=== PATIENT | female | born 1950 | race Caucasian/White ===

== ENCOUNTER 2016-12-24 15:59 | Inpatient (IN) | payer BC, MEDICARE ==
[~2016-12-24] VITALS: Ht 162.6 cm; Wt 65.0 kg
[~2016-12-24 15:59] MED LIST: ACYCLOVIR400 MG PO; ALENDRONATE35 MG PO; ALLEGRA-D 2424 HOUR PO; ALLERGY RELIEF180 MG PO; ALPRAZOLAM1 MG PO; AMBIEN10 MG PO; AMITRIPTYLIN100 MG PO; ATENOLOL50 MG PO; AZITHROMYCIN250 MG PO; BACTRIM DS1 TAB PO; BENTYL10 MG PO; BIOTIN1000 MCG PO; BIOTIN5000 MCG PO; BLOOD GLUCOSE TEST S XX; CEPHALEXIN500 MG PO; CIPRO XR500 MG PO; CITALOPRAM10 MG PO; CYANOCOBALAM1000 MCG IJ; CYCLOBENZAPR10 MG PO; DEPO-MEDROL40 MG/ML IM; DICYCLOMINE10 MG PO; DIFLUCAN150 MG PO; DURAGESIC50 MCG/H1; EFFEXOR XR150 MG OR; EFFEXOR XR75 MG PO; ESTRACE2 MG OR; FERROUS FUMARA325 MG; FEXOFENADINE H180 MG PO; FISH OIL ULT1000 MG PO; FISH OIL1000 MG PO; FISH OIL1200 M1 PO; FLEXERIL PO; FLONASE NASAL50 MCG; GLIPIZIDE10 MG PO; HYDROCO/APAP1 T13 PO; IMDUR30 MG PO; IMODIUM A-D2 MG PO; LAMICTAL ODT100 MG PO; LAMICTAL100 M1 PO; LANSOPRAZOLE15 MG PO; LANTUS100 MG/ML SC; LASIX40 MG PO; LEVEMIR FL100 UNIT/M SC; LEVEMIR SC; LEXAPRO20 MG PO; LIBRAX1 CAP OR; LIBRAX1 CAP PO; LIPOFEN150 MG PO; LIVALO4 MG PO; LOMOTIL2.5 MG PO; LOPID600 MG PO; LYRICA50 MG OR; MEDDOSEPAK PO; MELATONIN1 M1 PO; MELATONIN10 MG; METFORMIN1000 MG PO; METFORMIN500 MG PO; METRONIDAZOL500 MG PO; METRONIDAZOLE500 MG PO; MICRO-K10 MEQ PO; MONITOR XX; MULTIVITA2 PO; NEURONTIN300 MG PO; NITROFURANTO100 MG PO; NORCO1 TAB PO; NYSTATIN100000 M1 PO; OMEPRAZOLE20 M1 PO; OMEPRAZOLE20 MG PO; OXYCONTIN40 MG PO; PAROXETINE25 MG PO; PAXIL30 MG PO; PERCOCET 10/31 COMBO PO; PERCOCET1 TA2 OR; PERCOCET1 TA4 PO; PLAVIX75 MG OR; PREDNISONE10 MG PO; PREDNISONE20 MG PO; PREMARIN1.25 MG OR; PREVACID30 M1 PO; PREVACID30 M3 PO; SYNTHROID25 MCG PO; VALIUM2 MG PO; VITAMIN B 12100 MCG PO; XANAX0.5 MG OR; ZANTAC 150 MAX150 MG PO; ZPAK PO
[2016-12-24 16:49] LABS: URINE BILIRUBIN - DIPSTICK NEGATIVE (NEGATIVE); URINE BLOOD DIPSTICK TRACE-INTACT (NEGATIVE); URINE CLARITY CLEAR; URINE COLOR YELLOW; URINE GLUCOSE - DIPSTICK >=1000 mg/dL (NEGATIVE); URINE KETONE NEGATIVE (NEGATIVE); URINE LEUK ESTERASE NEGATIVE (NEGATIVE); URINE NITRITE - DIPSTICK NEGATIVE (Negative); URINE PH 5.5 (4.5-8.0); URINE PROTEIN - DIPSTICK 100 mg/dL (NEG-TRACE); URINE UROBILINOGEN - DIPSTICK 0.2 E.U./dL (0.2)
[2016-12-24 16:58] LABS: URINE RBC 0-2 RBC/hpf (0-5); URINE SQUAMOUS EPITHELIAL CELL FEW EPI/hpf (0-FEW); URINE WBC 0-2 WBC/hpf (0-5)
[2016-12-24 17:52] LABS: HEMATOCRIT 44.9 % (37.0-47.0); HEMOGLOBIN 15.3 g/dl (12.0-16.0); IMMATURE GRANULOCYTES 1.1 % (0.0-1.0); MEAN CELL VOLUME 91.1 fL CALC (80.0-100.0); MEAN CORPUSCULAR HGB CONC 34.1 g/L CALC (32.0-36.0); NEUT# 5.68 thou/uL (2.00-7.15); RED BLOOD COUNT 4.93 mill/uL (4.20-5.60)
[2016-12-24 18:11] LABS: ALBUMIN 4.8 g/dL (3.2-5.0); ALKALINE PHOSPHATASE 138 u/l (38-126); AMYLASE 119 u/l (30-110); ANION GAP 25 (6-22 (CALC)); BILIRUBIN, TOTAL 0.5 mg/dL (0.0-1.4); BUN 21 mg/dL (8-23); BUN/CREATININE RATIO 21 (12-20 (CALC)); CALCIUM 10.1 mg/dL (8.4-10.2); CARBON DIOXIDE 18 mmol/l (22-30); CHLORIDE 96 mmol/l (95-108); GFR 55 ML/MIN (>=60 (CALC)); GFR FOR AFR.AMER. > 60 ML/MIN (>=60 (CALC)); GLUCOSE 420 mg/dL (82-115); LIPASE 433 u/l (23-300); POTASSIUM 4.1 mmol/l (3.5-5.1); SGOT/AST 21 u/l (9-36); SGPT/ALT 25 u/l (11-66); SODIUM 135 mmol/l (137-146); TOTAL PROTEIN 9.1 g/dL (6.3-8.2)
[2016-12-24 20:42] LABS: C. DIFFICILE TOXIN A&B NEGATIVE (NEGATIVE)
[2016-12-24 23:42] VITALS: BP 136/72
[2016-12-25 03:10] VITALS: BP 147/73
[2016-12-25 06:12] LABS: HEMATOCRIT 36.1 % (37.0-47.0); HEMOGLOBIN 11.8 g/dl (12.0-16.0); IMMATURE GRANULOCYTES 0.8 % (0.0-1.0); MEAN CELL VOLUME 93.5 fL CALC (80.0-100.0); MEAN CORPUSCULAR HGB 30.6 pG CALC (26.0-32.0); MEAN CORPUSCULAR HGB CONC 32.7 g/L CALC (32.0-36.0); NEUT# 3.47 thou/uL (2.00-7.15); RED BLOOD COUNT 3.86 mill/uL (4.20-5.60); RED CELL DISTRI WIDTH 13.1 % (11.5-15.5)
[2016-12-25 06:33] LABS: BUN 16 mg/dL (8-23); BUN/CREATININE RATIO 17 (12-20 (CALC)); CALCIUM 8.6 mg/dL (8.4-10.2); CARBON DIOXIDE 21 mmol/l (22-30); GFR 55 ML/MIN (>=60 (CALC)); GFR FOR AFR.AMER. > 60 ML/MIN (>=60 (CALC)); GLUCOSE 204 mg/dL (82-115); HDL CHOLESTEROL 35 mg/dL (>=40); LIPASE 161 u/l (23-300); POTASSIUM 3.9 mmol/l (3.5-5.1); SODIUM 141 mmol/l (137-146)
[2016-12-25 06:41] LABS: VLDL CHOLESTROL 189 mg/dl (1-41 (CALC))
[2016-12-25 06:44] LABS: ANION GAP 16 (6-22 (CALC)); CALCULATED LDLCHOLESTEROL 159 mg/dL (62-129 (CALC)); CHLORIDE 108 mmol/l (95-108); CHOLESTEROL HDL RATIO 10.9 (<4.4 (CALC)); TOTAL CHOLESTEROL 383 mg/dl (0-199); TOTAL TRIGLYCERIDES 946 mg/dl (30-149)
[2016-12-25 13:55] LABS: URINE BILIRUBIN - DIPSTICK NEGATIVE (NEGATIVE); URINE BLOOD DIPSTICK NEGATIVE (NEGATIVE); URINE CLARITY SLIGHT CLOUDY; URINE COLOR YELLOW; URINE GLUCOSE - DIPSTICK 500 mg/dL (NEGATIVE); URINE KETONE NEGATIVE (NEGATIVE); URINE LEUK ESTERASE NEGATIVE (NEGATIVE); URINE NITRITE - DIPSTICK NEGATIVE (Negative); URINE PROTEIN - DIPSTICK TRACE mg/dL (NEG-TRACE); URINE SPECIFIC GRAVITY >=1.030; URINE UROBILINOGEN - DIPSTICK 0.2 E.U./dL (0.2)
[2016-12-25 17:00] VITALS: BP 145/72
[2016-12-25 20:10] VITALS: BP 135/74
[2016-12-26 00:30] VITALS: BP 122/66
[2016-12-26 04:46] VITALS: BP 112/66
[2016-12-26 05:09] LABS: HEMATOCRIT 30.2 % (37.0-47.0); MEAN CELL VOLUME 93.8 fL CALC (80.0-100.0); MEAN CORPUSCULAR HGB 31.1 pG CALC (26.0-32.0); MEAN CORPUSCULAR HGB CONC 33.1 g/L CALC (32.0-36.0); NEUT# 3.66 thou/uL (2.00-7.15); RED BLOOD COUNT 3.22 mill/uL (4.20-5.60); RED CELL DISTRI WIDTH 12.8 % (11.5-15.5)
[2016-12-26 05:34] LABS: CALCIUM 8.5 mg/dL (8.4-10.2); CREATININE 1.1 mg/dL (0.5-1.0); POTASSIUM 3.9 mmol/l (3.5-5.1)
[2016-12-26 17:00] VITALS: BP 154/79
[2016-12-26 20:13] VITALS: BP 150/81
[2016-12-26 23:35] VITALS: BP 153/79
[2016-12-27 03:21] VITALS: BP 163/80
[2016-12-27 05:59] LABS: HEMATOCRIT 33.5 % (37.0-47.0); HEMOGLOBIN 11.2 g/dl (12.0-16.0); IMMATURE GRANULOCYTES 1.4 % (0.0-1.0); MEAN CORPUSCULAR HGB 30.4 pG CALC (26.0-32.0); MEAN CORPUSCULAR HGB CONC 33.4 g/L CALC (32.0-36.0); NEUT# 3.33 thou/uL (2.00-7.15); RED BLOOD COUNT 3.68 mill/uL (4.20-5.60); RED CELL DISTRI WIDTH 12.5 % (11.5-15.5)
[2016-12-27 06:14] LABS: ANION GAP 14 (6-22 (CALC)); BUN 14 mg/dL (8-23); BUN/CREATININE RATIO 17 (12-20 (CALC)); CALCIUM 9.3 mg/dL (8.4-10.2); CARBON DIOXIDE 22 mmol/l (22-30); CHLORIDE 108 mmol/l (95-108); CREATININE 0.8 mg/dL (0.5-1.0); GFR > 60 ML/MIN (>=60 (CALC)); GFR FOR AFR.AMER. > 60 ML/MIN (>=60 (CALC)); GLUCOSE 135 mg/dL (82-115); POTASSIUM 3.9 mmol/l (3.5-5.1); SODIUM 140 mmol/l (137-146)
[2016-12-27 07:31] VITALS: BP 122/62
[2016-12-27 09:24] VITALS: BP 122/62
[2016-12-27] MEDS ORDERED: NOVOLOG100 UNIT/M SC (12:38)
[2016-12-27] MEDS ORDERED: FIRST-VANCOM25 MG/ML PO (12:38)
[2016-12-27] MEDS ORDERED: LEVEMIR100 UNIT/M SC (12:38)
[2016-12-27] MEDS ORDERED: FLORASTOR250 M1 PO (12:38)
== END 2016-12-27 13:35 | disposition home or self-care (01) | DRG 392 ==
LOC: ENPENDDIS → ED 15:59 → ED-I 19:27 → ED 19:36 → MS2 19:37
PROVIDERS: Emergency Medicine; ADMIT Internal Medicine; ATTEND Internal Medicine
DX: R19.7 Diarrhea, unspecified (principal); E87.2 Acidosis; E11.65 Type 2 diabetes mellitus with hyperglycemia; E11.40 Type 2 diabetes mellitus with diabetic neuropathy, unspecified; I10 Essential (primary) hypertension; E78.5 Hyperlipidemia, unspecified; F41.9 Anxiety disorder, unspecified; F32.9 Major depressive disorder, single episode, unspecified; F17.220 Nicotine dependence, chewing tobacco, uncomplicated; G89.29 Other chronic pain; Z93.3 Colostomy status; Z86.19 Personal history of other infectious and parasitic diseases; Z79.84 Long term (current) use of oral hypoglycemic drugs
CPT/HCPCS: S0164

== ENCOUNTER 2017-07-03 14:04 | Observation (INO) | payer BC, MEDICARE ==
[~2017-07-03] VITALS: Ht 162.6 cm; Wt 70.7 kg
[~2017-07-03 14:04] MED LIST changes: +FIRST-VANCOM25 MG/ML PO; +FLORASTOR250 M1 PO; +LEVEMIR100 UNIT/M SC; +NOVOLOG100 UNIT/M SC
[2017-07-03] MEDS ORDERED: ATENOLOL50 MG PO (14:54)
[2017-07-03] MEDS ORDERED: MIRTAZAPINE ODT15 MG PO (14:55)
[2017-07-03] MEDS ORDERED: HYDROXYZ PAM25 MG PO (14:55)
[2017-07-03] MEDS ORDERED: SEROQUEL25 MG PO (14:57)
[2017-07-03] MEDS ORDERED: AMBIEN5 MG PO (14:57)
[2017-07-03] MEDS ORDERED: LASIX 40 MG TAB40 MG PO (14:58)
[2017-07-03] MEDS ORDERED: FLEXERIL5 MG PO (14:59)
[2017-07-03] MEDS ORDERED: RANITIDINE75 MG/5 ML PO ×2 (14:59→15:00)
[2017-07-03] MEDS ORDERED: OXYCOD/APAP1 TA4 PO (15:00)
[2017-07-03] MEDS ORDERED: OXYCONTIN10 MG PO (15:02)
[2017-07-03] MEDS ORDERED: HYOSCYAMINE0.125 M1 SL (15:04)
[2017-07-03] MEDS ORDERED: CHLORTAB PO (15:05)
[2017-07-03] MEDS ORDERED: PROBIOTIC1 TAB PO (15:05)
[2017-07-03] MEDS ORDERED: SUPER BIOTIN5000 MCG PO (15:06)
[2017-07-03] MEDS ORDERED: LEVEMIR FL100 UNIT/M SC (15:07)
[2017-07-03] MEDS ORDERED: VYVANSE40 MG PO (15:07)
[2017-07-03] MEDS ORDERED: KEFLEX500 M1 PO (15:09)
[2017-07-03] MEDS ORDERED: FLONASE AL50 MCG/ACT (15:09)
[2017-07-03] MEDS ORDERED: MUCINEX ALLERG180 MG (15:09)
[2017-07-03 15:11] LABS: HEMATOCRIT 45.2 % (37.0-47.0); HEMOGLOBIN 15.6 g/dl (12.0-16.0); IMMATURE GRANULOCYTES 1.2 % (0.0-1.0); MEAN CELL VOLUME 88.8 fL CALC (80.0-100.0); MEAN CORPUSCULAR HGB 30.6 pG CALC (26.0-32.0); MEAN CORPUSCULAR HGB CONC 34.5 g/L CALC (32.0-36.0); NEUT# 10.13 thou/uL (2.00-7.15); RED BLOOD COUNT 5.09 mill/uL (4.20-5.60)
[2017-07-03 15:27] LABS: ALBUMIN 4.9 g/dL (3.2-5.0); ALKALINE PHOSPHATASE 119 u/l (38-126); ANION GAP 24 (6-22 (CALC)); BILIRUBIN, TOTAL 0.4 mg/dL (0.0-1.4); BUN 24 mg/dL (8-23); BUN/CREATININE RATIO 24 (12-20 (CALC)); CARBON DIOXIDE 17 mmol/l (22-30); CHLORIDE 102 mmol/l (95-108); D-DIMER 0.36 mg/L (0.19-0.60); GFR 55 ML/MIN (>=60 (CALC)); GFR FOR AFR.AMER. > 60 ML/MIN (>=60 (CALC)); GLUCOSE 229 mg/dL (82-115); LIPASE 133 u/l (23-300); POTASSIUM 4.5 mmol/l (3.5-5.1); PROTHROMBIN TIME 10.7 SECONDS (9.0-12.5); SGOT/AST 22 u/l (9-36); SGPT/ALT 25 u/l (11-66); SODIUM 138 mmol/l (137-146); TOTAL PROTEIN 9.3 g/dL (6.3-8.2)
[2017-07-03 20:15] VITALS: BP 140/86
[2017-07-04] VITALS (13 sets, daily range): BP systolic 65–122; BP diastolic 40–73
[2017-07-04 06:03] LABS: COCAINE NEGATIVE (NEGATIVE); TETRAHYDROCANNABIONOL NEGATIVE (NEGATIVE)
[2017-07-04 06:04] LABS: METHADONE NEGATIVE (NEGATIVE)
[2017-07-04 06:05] LABS: BARBITURATES NEGATIVE (NEGATIVE); OXCYCODONE POSITIVE (NEGATIVE); TRICYLIC ANTIDEPRESSANTS POSITIVE (NEGATIVE)
[2017-07-04 06:23] LABS: CALCIUM 8.8 mg/dL (8.4-10.2); CREATININE 1.4 mg/dL (0.5-1.0); MAGNESIUM 1.7 mg/dL (1.6-2.3); POTASSIUM 3.9 mmol/l (3.5-5.1)
[2017-07-04 09:32] LABS: CHOLESTEROL HDL RATIO 11.2 (<4.4 (CALC))
[2017-07-05 05:00] VITALS: BP 124/65
[2017-07-05 06:10] LABS: HEMATOCRIT 33.6 % (37.0-47.0); HEMOGLOBIN 11.2 g/dl (12.0-16.0); IMMATURE GRANULOCYTES 1.3 % (0.0-1.0); MEAN CELL VOLUME 93.6 fL CALC (80.0-100.0); MEAN CORPUSCULAR HGB 31.2 pG CALC (26.0-32.0); MEAN CORPUSCULAR HGB CONC 33.3 g/L CALC (32.0-36.0); NEUT# 2.86 thou/uL (2.00-7.15); RED BLOOD COUNT 3.59 mill/uL (4.20-5.60); RED CELL DISTRI WIDTH 13.1 % (11.5-15.5)
[2017-07-05 06:28] LABS: ANION GAP 16 (6-22 (CALC)); BUN 21 mg/dL (8-23); BUN/CREATININE RATIO 20 (12-20 (CALC)); CALCIUM 8.6 mg/dL (8.4-10.2); CARBON DIOXIDE 22 mmol/l (22-30); CHLORIDE 109 mmol/l (95-108); GFR 55 ML/MIN (>=60 (CALC)); GFR FOR AFR.AMER. > 60 ML/MIN (>=60 (CALC)); GLUCOSE 115 mg/dL (82-115); MAGNESIUM 1.4 mg/dL (1.6-2.3); POTASSIUM 4.5 mmol/l (3.5-5.1); SODIUM 142 mmol/l (137-146)
[2017-07-05 07:03] LABS: URINE BILIRUBIN - DIPSTICK NEGATIVE (NEGATIVE); URINE BLOOD DIPSTICK NEGATIVE (NEGATIVE); URINE CLARITY CLEAR; URINE COLOR YELLOW; URINE GLUCOSE - DIPSTICK NEGATIVE (NEGATIVE); URINE KETONE NEGATIVE (NEGATIVE); URINE LEUK ESTERASE TRACE (NEGATIVE); URINE NITRITE - DIPSTICK NEGATIVE (Negative); URINE PROTEIN - DIPSTICK NEGATIVE (NEG-TRACE); URINE UROBILINOGEN - DIPSTICK 0.2 E.U./dL (0.2)
[2017-07-05 07:27] VITALS: BP 148/76
[2017-07-05 11:07] VITALS: BP 144/53
[2017-07-05] MEDS ORDERED: OXYCOD/APAP1 TA4 PO (11:29)
[2017-07-05] MEDS ORDERED: OXYCONTIN10 MG PO (11:29)
== END 2017-07-05 14:40 | disposition home or self-care (01) | DRG 313 ==
LOC: ED 14:04 → ED-I 14:33 → ED 19:20 → MS2 19:21
PROVIDERS: Emergency Medicine; Nurse Practitioner Family; ADMIT Internal Medicine; ATTEND Internal Medicine
DX: R07.9 Chest pain, unspecified (principal); N17.9 Acute kidney failure, unspecified; I95.9 Hypotension, unspecified; E11.42 Type 2 diabetes mellitus with diabetic polyneuropathy; E11.65 Type 2 diabetes mellitus with hyperglycemia; E83.42 Hypomagnesemia; J01.90 Acute sinusitis, unspecified; E86.0 Dehydration; E78.5 Hyperlipidemia, unspecified; J40 Bronchitis, not specified as acute or chronic; H66.92 Otitis media, unspecified, left ear; I10 Essential (primary) hypertension; E78.1 Pure hyperglyceridemia; F41.9 Anxiety disorder, unspecified; F32.9 Major depressive disorder, single episode, unspecified; F17.220 Nicotine dependence, chewing tobacco, uncomplicated; M19.90 Unspecified osteoarthritis, unspecified site; G89.4 Chronic pain syndrome; M96.1 Postlaminectomy syndrome, not elsewhere classified; B96.89 Other specified bacterial agents as the cause of diseases classified elsewhere; Z79.4 Long term (current) use of insulin; Z86.14 Personal history of Methicillin resistant Staphylococcus aureus infection; Z90.49 Acquired absence of other specified parts of digestive tract; Z79.891 Long term (current) use of opiate analgesic; Z93.3 Colostomy status; Z86.19 Personal history of other infectious and parasitic diseases
CPT/HCPCS: G0378; J3475

== ENCOUNTER 2018-03-15 23:32 | Inpatient (IN) | payer BC, MEDICARE ==
[~2018-03-15] VITALS: Ht 162.6 cm; Wt 68.2 kg
[~2018-03-15 23:32] MED LIST changes: +AMBIEN5 MG PO; +CHLORTAB PO; +FLEXERIL5 MG PO; +FLONASE AL50 MCG/ACT; +HYDROXYZ PAM25 MG PO; +HYOSCYAMINE0.125 M1 SL; +KEFLEX500 M1 PO; +LASIX 40 MG TAB40 MG PO; +MIRTAZAPINE ODT15 MG PO; +MUCINEX ALLERG180 MG; +OXYCOD/APAP1 TA4 PO; +OXYCONTIN10 MG PO; +PROBIOTIC1 TAB PO; +RANITIDINE75 MG/5 ML PO; +SEROQUEL25 MG PO; +SUPER BIOTIN5000 MCG PO; +VYVANSE40 MG PO
--- NOTE | 2018-03-15 23:47 | NUR ---
AMBULATED TO ROOM
[2018-03-16] VITALS (7 sets, daily range): BP systolic 105–147; BP diastolic 39–67
[2018-03-16 00:31] LABS: URINE BLOOD DIPSTICK NEGATIVE (NEGATIVE); URINE COLOR YELLOW; URINE GLUCOSE - DIPSTICK NEGATIVE (NEGATIVE); URINE LEUK ESTERASE TRACE (NEGATIVE); URINE NITRITE - DIPSTICK NEGATIVE (Negative); URINE PROTEIN - DIPSTICK 100 mg/dL (NEG-TRACE); URINE SPECIFIC GRAVITY >=1.030; URINE UROBILINOGEN - DIPSTICK 0.2 E.U./dL (0.2)
[2018-03-16 00:35] LABS: URINE BILIRUBIN - DIPSTICK SMALL (NEGATIVE)
[2018-03-16 00:36] LABS: URINE CLARITY HAZY
[2018-03-16 00:38] LABS: URINE KETONE Negative (NEGATIVE)
[2018-03-16 00:42] LABS: IMMATURE GRANULOCYTES 1.1 % (0.0-1.0); MEAN CELL VOLUME 91.3 fL CALC (80.0-100.0); NEUT# 8.32 thou/uL (2.00-7.15); RED BLOOD COUNT 4.58 mill/uL (4.20-5.60); RED CELL DISTRI WIDTH 13.6 % (11.5-15.5)
[2018-03-16 00:44] LABS: URINE BACTERIA RARE hpf; URINE HYALINE CAST FEW lpf (NONE-RARE); URINE RBC 0-2 RBC/hpf (0-5); URINE SQUAMOUS EPITHELIAL CELL MODERATE EPI/hpf (0-FEW)
[2018-03-16 00:48] LABS: ALBUMIN 4.6 g/dL (3.2-5.0); ALKALINE PHOSPHATASE 117 u/l (38-126); AMYLASE 65 u/l (30-110); BILIRUBIN, TOTAL 0.4 mg/dL (0.0-1.4); BUN 26 mg/dL (8-23); BUN/CREATININE RATIO 19 (12-20 (CALC)); CREATININE 1.4 mg/dL (0.5-1.0); GFR 37 ML/MIN (>=60 (CALC)); GFR FOR AFR.AMER. 45 ML/MIN (>=60 (CALC)); LIPASE 75 u/l (23-300); POTASSIUM 3.9 mmol/l (3.5-5.1); SGOT/AST 21 u/l (9-36); SGPT/ALT 38 u/l (11-66); SODIUM 136 mmol/l (137-146); TOTAL PROTEIN 8.4 g/dL (6.3-8.2)
[2018-03-16] MEDS ORDERED: VICTOZA18 MG/3 ML SC (00:49)
[2018-03-16] MEDS ORDERED: TRESIBA FL100 UNIT/M SC (00:51)
[2018-03-16] MEDS ORDERED: WELLBUTRIN200 M1 PO (00:52)
[2018-03-16 00:53] LABS: HEMATOCRIT 41.8 % (37.0-47.0); HEMOGLOBIN 14.2 g/dl (12.0-16.0)
[2018-03-16 00:54] LABS: ANION GAP 19 (6-22 (CALC)); CARBON DIOXIDE 32 mmol/l (22-30); CHLORIDE 89 mmol/l (95-108)
[2018-03-16] MEDS ORDERED: CLOBETASOL0.053 EX (00:54)
[2018-03-16] MEDS ORDERED: OXYCONTIN10 MG PO (00:56)
[2018-03-16 01:00] LABS: MYOGLOBIN 94 ng/mL (0 - 62)
--- NOTE | 2018-03-16 01:30 | NUR ---
NO V/D STILL HAVING ABD PAIN BUT SUBSIDING
--- NOTE | 2018-03-16 02:10 | NUR ---
SECOND L NS BEGUN IN NEW IV SITE R ARM PT IS INFORMED OF ABN LACTIC ACID LAB. W/P/D MILD DISCOMFORT R WRIST IV SITE WARM BLANKET TOPICALLY THERE FOR DISCOMFORT
--- NOTE | 2018-03-16 03:13 | NUR ---
pt c/o itching ivpb vanco infustion stopped dr adrien aguirre
--- NOTE | 2018-03-16 04:18 | NUR ---
PHONE REPORT TO BERNARDA MAIER IN ICU THEN TO FLOOR IN IMPROVED STABLE CONDITION
--- NOTE | 2018-03-16 04:35 | NUR ---
PT ARRIVED TO UNIT VIA STRETCHER WITH ER STAFF; ALERT AND ORIENTED. AMBULATED TO BSC TO VOID AND TO BED INDEPENDENTLY. C/O MILD LOWER ABDOMINAL PAIN; STATES THAT SHE FEELS BETTER THAN SHE DID UPON ADMISSION. RESPIRATIONS EVEN AND UNLABORED ON ROOM AIR. DENIES NAUSEA. ORIENTED TO ROOM AND CALL LIGHT SYSTEM. PLAN OF CARE REVIEWED. PT ENCOURAGED TO VERBALIZE CONCERNS. STATES UNDERSTANDING. SAFETY MEASURES IN PLACE. CALL LIGHT WITHIN REACH.
--- NOTE | 2018-03-16 06:16 | NUR ---
PT CONTINUES TO C/O MILD ITCHING AND HAS RED BLOTCHES TO FACE; SHE STATES THAT BENEDRYL WAS MILDLY EFFECTIVE. DENIES ANY REPSIRATORY ISSUES NO SIDE EFFECTS INVOLVING MOUTH OR THROAT. VANCOMYCIN COMPLETED AND NS INFUSING NOW. 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 INITIAL ACCU CHECK 138. PT REQUEST PAIN MEDICATION FOR LOWER ABDOMINAL DISCOMFORT.
--- NOTE | 2018-03-16 07:05 | NUR ---
PT LAYING IN BED RESTING WITH EYES CLOSED, AROUSES EASILY TO VERBAL STIMULI, PT A & O X3, PERRL, PT VERBALIZED SHE IS HAVING SOME ABD DISCOMFORT, PT REFUSED ANY PAIN MEDICATION AT THIS TIME, ABD DISTENDED AND SOFT, HYPOACTIVE BOWEL SOUNDS, STRONG RADIAL & PEDAL, 22G LW IV WITH NS INFUSING AT PRESCRIBED RATE, 20G RAC IV SALINE LOCKED, NO REDNESS OR DRAINAGE AT EITHER SITE, AM ASSESSMENT COMPLETE, SEE INTERVENTIONS, SAFETY MEASURES REINFORCED, CALL MCMAHON WITHIN REACH
--- NOTE | 2018-03-16 07:50 | NUR ---
DR SORTO AT BEDSIDE DISCUSSING PLAN OF CARE
--- NOTE | 2018-03-16 09:15 | NUR ---
PHARMACY AT BEDSIDE REVIEWING HOME MEDICATIONS
--- NOTE | 2018-03-16 10:40 | NUR ---
PT TO CT VIA WC
--- NOTE | 2018-03-16 10:55 | NUR ---
PT RETURNED TO THE UNIT FROM CT VIA WC, PT TOLERATED WELL, PT AMBULATED TO RECLINER, REMINDED TO CALL FOR ASSISTANCE, CALL MCMAHON WITHIN REACH
--- NOTE | 2018-03-16 11:45 | NUR ---
PT'S AT BEDSIDE
--- NOTE | 2018-03-16 13:15 | NUR ---
PT ASSISTED TO THE RESTROOM AND BACK TO BED, PT AMBULATES WITH A SLOW STEADY GAIT, TOLERATED WELL, CALL MCMAHON WITHIN REACH
--- NOTE | 2018-03-16 14:01 | NUR ---
PT ASSISTED TO THE RESTROOM AND BACK TO BED, PT PROVIDED WITH SUPPLIES TO GET FRESHENED UP, REMINDED TO CALL FOR ASSISTANCE, CALL [facility]MA[facility] WITHIN REACH
--- NOTE | 2018-03-16 15:48 | NUR ---
REPORT RECEIVED FROM MARY PT ARRIVED ON UNIT @ 1249 VIA W/C, ALERT AND ORIENTED, SETTLED IN ROOM SITTING UP IN CHAIR, C/O BEING HUNGRY AND REQUESTING ORAL INTAKE. DR SORTO NOTIFIED AND ORDERED CONTINUED NPO, PT ADVISED AND INFORMED OF REASON, STATED UNDERSTANDING. IVF INFUSING, CALL MCMAHON IN REACH, WILL CONTINUE TO MONITOR.
--- NOTE | 2018-03-16 19:00 | NUR ---
RECEIVED CHANGE OF SHIFT REPORT FROM RADHA. RN. PT ALERT AND ORIENTED AND LYING IN BED. DENIES DISCOMFORT. NO APPARENT ACUTE DISTRESS NOTED. WILL CONTINUE TO MONITOR.
--- NOTE | 2018-03-17 | NUR ---
RESTING QUIETLY. NO APPARENT ACUTE DISTRESS NOTED.
[2018-03-17 04:00] VITALS: BP 135/51
--- NOTE | 2018-03-17 04:00 | NUR ---
PT RESTED WELL DURING THE NIGHT. NO APPARENT ACUTE CHANGES NOTED IN PT'S CONDITION.
[2018-03-17 07:53] LABS: BUN 13 mg/dL (8-23); BUN/CREATININE RATIO 14 (12-20 (CALC)); CARBON DIOXIDE 27 mmol/l (22-30); CREATININE 0.9 mg/dL (0.5-1.0); GFR > 60 ML/MIN (>=60 (CALC)); GFR FOR AFR.AMER. > 60 ML/MIN (>=60 (CALC)); POTASSIUM 4.2 mmol/l (3.5-5.1); SODIUM 141 mmol/l (137-146)
[2018-03-17 08:00] VITALS: BP 100/54
[2018-03-17 08:04] LABS: ANION GAP 9 (6-22 (CALC)); CHLORIDE 109 mmol/l (95-108)
--- NOTE | 2018-03-17 10:34 | NUR ---
PT SEEN AWAKE, ALERT, UNCOMFORTABLE FROM ABOMINAL DISCOMFORT. MED PROVIDED ORDERED FOR PAIN. CT TO BE DONE THIS AM RECOMMENDED BY RADIOLOGIST. PT UPDATED ON KNOWN RESULTS.
[2018-03-17 11:09] VITALS: BP 119/58
--- NOTE | 2018-03-17 12:51 | NUR ---
PT AND FAMILY UPDATED ON KNOWN RESULTS, NOW AWARE OF TODAY'S CT RESULT INDICATING NO BOWEL OBSTRUCTION, PLEASED WITH RESULT. NO DISTRESS NOTED.
[2018-03-17 14:59] VITALS: BP 99/57
--- NOTE | 2018-03-17 16:19 | NUR ---
PT PROVIDED MEDS EARLIER FOR ANXIETY, SEEN COMFORTABLE AT THIS TIME. PT ALSO GIVEN SOME FOOD TO SEE HOW THIS IS TOLERATED.
[2018-03-17 16:56] LABS: CHOLESTEROL HDL RATIO 9.6 (<4.4 (CALC))
[2018-03-17 19:05] VITALS: BP 104/54
--- NOTE | 2018-03-17 19:10 | NUR ---
RECEIVED CHANGE OF SHIFT REPORT FROM DARRION MATHEW. PT ALERT AND ORIENTED AND LYING IN BED WTTH SPOUSE AT BEDSIDE. PT REPORTS PAIN TO BACK AND LOWER LEGS. NO APPARENT ACUTE DISTRESS NOTED. WILL CONTINUE TO MONITOR
[2018-03-18 04:00] VITALS: BP 103/59
--- NOTE | 2018-03-18 04:00 | NUR ---
NO APPARENT ACUTE CHANGES NOTED IN PT'S CONDITION.
[2018-03-18 05:33] LABS: MEAN CELL VOLUME 96.3 fL CALC (80.0-100.0); MEAN CORPUSCULAR HGB CONC 32.2 g/L CALC (32.0-36.0); RED BLOOD COUNT 3.26 mill/uL (4.20-5.60); RED CELL DISTRI WIDTH 13.8 % (11.5-15.5)
[2018-03-18 05:48] LABS: ANION GAP 11 (6-22 (CALC)); BUN 13 mg/dL (8-23); BUN/CREATININE RATIO 15 (12-20 (CALC)); CARBON DIOXIDE 25 mmol/l (22-30); CHLORIDE 107 mmol/l (95-108); CREATININE 0.8 mg/dL (0.5-1.0); GFR > 60 ML/MIN (>=60 (CALC)); GFR FOR AFR.AMER. > 60 ML/MIN (>=60 (CALC)); POTASSIUM 4.2 mmol/l (3.5-5.1); SODIUM 139 mmol/l (137-146)
[2018-03-18 06:10] LABS: HEMATOCRIT 31.4 % (37.0-47.0); HEMOGLOBIN 10.1 g/dl (12.0-16.0)
--- NOTE | 2018-03-18 07:02 | NUR ---
BEDSIDE REPORT RECEIVED BY SHEEBA. PT IS RESTING IN BED WITH NO S/S OF DISTRESS NOTED. PT DENIES NEEDS AT THIS AND CALL LIGHT IN REACH.
--- NOTE | 2018-03-18 07:53 | NUR ---
MEDICATED PT WITH OXYCONTIN SEE EMAR. PT SITTING IN THE SIDE OF THE BED. ASSESSMENT DONE. RESPS EVEN AND UNLABORED. NS 125ML/HR INFUSING WELL. PT DENIES NEEDS AT THIS TIME. IN ROOM. SAFETY PRECAUTIONS REINFORCED AND CALL LIGHT IN REACH.
[2018-03-18 07:57] VITALS: BP 124/67
[2018-03-18 09:04] VITALS: BP 124/67
--- NOTE | 2018-03-18 12:00 | NUR ---
PT IS SITTING IN THE CHAIR . PT DENIES NEEDS AT THIS TIME. PT STATED THAT SHE IS JUST WAITING FOR DOCTOR. CALL LIGHT IN REACH.
--- NOTE | 2018-03-18 15:02 | NUR ---
Discharge instructions given. Patient verbalizes understanding of same. Discharged in stable condition via Wheelchair to Home with spouse. All belongings sent with pt.
== END 2018-03-18 15:02 | disposition home or self-care (01) | DRG 390 ==
LOC: ED 23:32 → ED-I 03-16 03:00 → ED 03-16 03:41 → MS2 03-16 03:42 → ICU 03-16 03:42 → MS2 03-16 15:51
PROVIDERS: Emergency Medicine; Internal Medicine; Nurse Practitioner Family; ADMIT Internal Medicine; ATTEND Internal Medicine
DX: K56.600 Partial intestinal obstruction, unspecified as to cause (principal); I10 Essential (primary) hypertension; E11.9 Type 2 diabetes mellitus without complications; F32.9 Major depressive disorder, single episode, unspecified; F41.9 Anxiety disorder, unspecified; F17.220 Nicotine dependence, chewing tobacco, uncomplicated; E86.0 Dehydration; G89.4 Chronic pain syndrome; E78.5 Hyperlipidemia, unspecified; K57.30 Diverticulosis of large intestine without perforation or abscess without bleeding; E83.42 Hypomagnesemia; Z79.4 Long term (current) use of insulin; Z90.49 Acquired absence of other specified parts of digestive tract
CPT/HCPCS: S0164

== ENCOUNTER 2019-10-30 | Emergency (ER) | payer MEDICARE ==
[~2019-10-30] MED LIST changes: +CLOBETASOL0.053 EX; +TRESIBA FL100 UNIT/M SC; +VICTOZA18 MG/3 ML SC; +WELLBUTRIN200 M1 PO
== END 2019-10-30 20:47 | disposition home or self-care (01) ==
DX: G89.4 Chronic pain syndrome (principal); F41.9 Anxiety disorder, unspecified; E11.9 Type 2 diabetes mellitus without complications; I10 Essential (primary) hypertension; F17.220 Nicotine dependence, chewing tobacco, uncomplicated; Z90.49 Acquired absence of other specified parts of digestive tract; Z79.4 Long term (current) use of insulin

== ENCOUNTER 2022-10-07 12:52 | Emergency (ER) | payer MEDICARE ==
[~2022-10-07] VITALS: Ht 162.6 cm; Wt 61.0 kg
[~2022-10-07 12:52] MED LIST changes: +CHLORPHENIRAMINE PO; -CHLORTAB PO
[2022-10-07 13:52] VITALS: BP 155/70
[2022-10-07 14:00] VITALS: BP 158/88
[2022-10-07 14:15] VITALS: BP 183/95
[2022-10-07 14:21] LABS: BASO% 0.3 % (0-3); EOS% 0.6 % (0-8); HEMOGLOBIN 13.8 g/dl (12.0-16.0); IMMATURE GRANULOCYTES 0.7 % (0.0-5.0); LYMPH% 22.5 % (15-41); MEAN CELL VOLUME 95.1 fL CALC (80.0-100.0); MEAN CORPUSCULAR HGB CONC 33.7 g/dL CAL (32.0-36.0); MONO% 4.8 % (2-13); NEUT# 7.54 thou/uL (2.00-7.15); NEUT% 71.1 % (42-76); RED BLOOD COUNT 4.31 mill/uL (4.20-5.60); RED CELL DISTRI WIDTH 12.8 % (11.5-15.5)
[2022-10-07 14:28] LABS: ALBUMIN 4.3 g/dL (3.2-5.0); ALKALINE PHOSPHATASE 74 u/l (38-126); ANION GAP 14 (6-22 (CALC)); BILIRUBIN, TOTAL 0.2 mg/dL (0.02-1.3); BUN 28 mg/dL (8-23); BUN/CREATININE RATIO 22 (12-20 (CALC)); CHLORIDE 107 mmol/l (95-108); CREATININE 1.3 mg/dL (0.5-1.0); GFR FOR AFR.AMER. 49 ML/MIN (>=60 (CALC)); GFR OTHER RACES 40 ML/MIN (>=60 (CALC)); POTASSIUM 4.4 mmol/l (3.5-5.1); SGOT/AST 34 u/l (9-36); SODIUM 137 mmol/l (137-146); TOTAL PROTEIN 7.6 g/dL (6.3-8.2)
[2022-10-07 14:29] LABS: CARBON DIOXIDE 20 mmol/l (22-30)
[2022-10-07 14:30] VITALS: BP 186/89
[2022-10-07] MEDS ORDERED: LEVEMIR FL100 UNIT/M SC (15:15)
[2022-10-07] MEDS ORDERED: NEXIUM40 M1 PO (15:16)
[2022-10-07] MEDS ORDERED: METFORMIN500 M2 PO (15:17)
[2022-10-07] MEDS ORDERED: ASPIRIN 81 LOW81 MG PO (15:17)
[2022-10-07 16:22] VITALS: BP 186/89
== END 2022-10-07 16:26 | disposition home or self-care (01) ==
LOC: ED 12:52
PROVIDERS: Family Medicine
DX: S42.031A Displaced fracture of lateral end of right clavicle, initial encounter for closed fracture (principal); S40.011A Contusion of right shoulder, initial encounter; R55 Syncope and collapse; I10 Essential (primary) hypertension; E11.9 Type 2 diabetes mellitus without complications; F32.A Depression, unspecified; F41.9 Anxiety disorder, unspecified; F17.200 Nicotine dependence, unspecified, uncomplicated; W18.39XA Other fall on same level, initial encounter; Y92.009 Unspecified place in unspecified non-institutional (private) residence as the place of occurrence of the external cause; Z79.84 Long term (current) use of oral hypoglycemic drugs; Z79.4 Long term (current) use of insulin

== ENCOUNTER 2023-05-10 22:53 | Emergency (ER) | payer MEDICARE ==
[~2023-05-10] VITALS: Ht 162.6 cm; Wt 63.5 kg
[~2023-05-10 22:53] MED LIST changes: +ASPIRIN 81 LOW81 MG PO; +METFORMIN500 M2 PO; +NEXIUM40 M1 PO
[2023-05-10 23:01] VITALS: BP 197/99
[2023-05-10 23:05] VITALS: BP 184/135
[2023-05-10 23:15] VITALS: BP 177/75
[2023-05-10] MEDS ORDERED: BUPROPION HCL150 MG PO (23:17)
[2023-05-10 23:31] VITALS: BP 178/73
[2023-05-11 01:00] VITALS: BP 167/77
== END 2023-05-11 01:15 | disposition home or self-care (01) ==
LOC: ED 22:53
PROC: 0HQ0XZZ Repair Scalp Skin, External Approach (ICD-10-PCS; principal; 2023-05-10)
DX: S01.01XA Laceration without foreign body of scalp, initial encounter (principal); I10 Essential (primary) hypertension; E11.9 Type 2 diabetes mellitus without complications; F41.9 Anxiety disorder, unspecified; F32.A Depression, unspecified; F17.200 Nicotine dependence, unspecified, uncomplicated; W01.198A Fall on same level from slipping, tripping and stumbling with subsequent striking against other object, initial encounter; Y92.009 Unspecified place in unspecified non-institutional (private) residence as the place of occurrence of the external cause; Z79.4 Long term (current) use of insulin; Z90.49 Acquired absence of other specified parts of digestive tract; Z79.84 Long term (current) use of oral hypoglycemic drugs

== ENCOUNTER 2023-05-15 13:50 | Emergency (ER) | payer MEDICARE ==
[~2023-05-15] VITALS: Ht 162.6 cm; Wt 65.0 kg
[~2023-05-15 13:50] MED LIST changes: +BUPROPION HCL150 MG PO
[2023-05-15 14:22] VITALS: BP 176/87
[2023-05-15 14:23] VITALS: BP 190/86
[2023-05-15 14:30] VITALS: BP 198/81
[2023-05-15 17:06] VITALS: BP 188/78
== END 2023-05-15 17:25 | disposition home or self-care (01) ==
LOC: ED 13:50
DX: S39.011A Strain of muscle, fascia and tendon of abdomen, initial encounter (principal); S01.01XD Laceration without foreign body of scalp, subsequent encounter; I10 Essential (primary) hypertension; E11.9 Type 2 diabetes mellitus without complications; F41.9 Anxiety disorder, unspecified; F32.A Depression, unspecified; F17.200 Nicotine dependence, unspecified, uncomplicated; W19.XXXA Unspecified fall, initial encounter; W19.XXXD Unspecified fall, subsequent encounter; Z90.49 Acquired absence of other specified parts of digestive tract; Z79.4 Long term (current) use of insulin; Z79.84 Long term (current) use of oral hypoglycemic drugs

== ENCOUNTER 2024-10-14 17:35 | Emergency (ER) | payer MEDICARE ==
[2024-10-14] VITALS (9 sets, daily range): BP systolic 144–181; BP diastolic 60–91
[~2024-10-14] VITALS: Ht 162.6 cm; Wt 63.0 kg
[2024-10-14] MEDS ORDERED: ASPIRIN 81 MG/TAB PO ONE (17:45)
[2024-10-14] MEDS ORDERED: LYRICA75 MG PO (17:59)
[2024-10-14] MEDS ORDERED: TRESIBA100 UNIT/M SC (18:00)
[2024-10-14 18:06] LABS: BASO% 0.3 % (0-3); EOS% 2.1 % (0-8); HEMATOCRIT 33.9 % (37.0-47.0); HEMOGLOBIN 10.4 g/dl (12.0-16.0); IMMATURE GRANULOCYTES 0.2 % (0.0-5.0); LYMPH% 16.5 % (15-41); MEAN CELL VOLUME 87.1 fL CALC (80.0-100.0); MEAN CORPUSCULAR HGB 26.7 pG CALC (26.0-32.0); MEAN CORPUSCULAR HGB CONC 30.7 g/dL CAL (32.0-36.0); MONO% 6.7 % (2-13); NEUT# 6.94 thou/uL (2.00-7.15); NEUT% 74.2 % (42-76); RED BLOOD COUNT 3.89 mill/uL (4.20-5.60); RED CELL DISTRI WIDTH 15.6 % (11.5-15.5)
[2024-10-14 18:21] LABS: ALBUMIN 3.6 g/dL (3.2-5.0); CREATININE 1.1 mg/dL (0.5-1.0); POTASSIUM 4.6 mmol/l (3.5-5.1); TOTAL PROTEIN 6.7 g/dL (6.3-8.2)
[2024-10-14 18:28] LABS: BILIRUBIN, TOTAL 0.5 mg/dL (0.02-1.3)
== END 2024-10-14 20:53 | disposition left against medical advice (07) ==
LOC: ED 17:35
PROVIDERS: Family Medicine
DX: R07.9 Chest pain, unspecified (principal); I10 Essential (primary) hypertension; E11.9 Type 2 diabetes mellitus without complications; F17.200 Nicotine dependence, unspecified, uncomplicated; Z95.1 Presence of aortocoronary bypass graft; Z95.5 Presence of coronary angioplasty implant and graft; Z79.4 Long term (current) use of insulin; Z53.29 Procedure and treatment not carried out because of patient's decision for other reasons